=== PATIENT | female | born 1940 | race Hispanic/Latino ===

== ENCOUNTER 2017-04-24 12:26 | Inpatient (IN) | payer MEDICARE ==
--- NOTE | 2017-04-24 12:46 | ED PDOC ---
Arrival/HPI - General Chief Complaint: Psychiatric Evaluation Time Seen by Provider: 04/24/17 12:37 Historian: Family () - History of Present Illness Narrative History of Present Illness (Text): 04/24/17 12:50 pt presents with AMS, worsening agitation x 1 week as per spouse; pt has had difficulty sleeping as well and verbally disturbing spouse as well as neighbors ; pt with decr appetite x 1-2 days, not taking her medications x 1 day; per spouse, no fever/chills/sweats, no cp/abd pain, no sob, no n/v, no urinary/ bowel changes; last BM was yesterday, no gross bleeding noted; no fall/trauma/ travel/sick contact; pt is here for further eval; pt's without other complaints. spouse had spoke to PCP, recommended patient to be brought to ED for further eval/mgt/likely admission PCP: Cole Time/Duration: > week Symptom Onset: Gradual Symptom Course: Worsening Context: Home Past Medical History - Provider Review Nursing Documentation Reviewed: Yes - Travel History Have you recently traveled outside [place] w/in the past 3 mons?: No - Past History Past History: No Previous - Infectious Disease Hx of Infectious Diseases: None - Cardiac Hx Cardiac Disorders: Yes - Neurological Hx Alzheimer's Disease: Yes Family/Social History - Physician Review Nursing Documentation Reviewed: Yes Family/Social History: No Known Family HX Smoking Status: Never Smoked Hx Alcohol Use: No Hx Substance Use: No Hx Substance Use Treatment: No Allergies/Home Meds Allergies/Adverse Reactions: Allergies codeine Allergy (Mild, Verified 04/24/17 12:54) RASH Home Medications: Home Meds Medication Instructions Recorded Confirmed Unobtainable 04/24/17 04/24/17 Review of Systems - Review of Systems Constitutional: Normal Eyes: Normal ENT: Normal Respiratory: Normal Cardiovascular: Normal Gastrointestinal: Normal Genitourinary Female: Normal Musculoskeletal: Normal Skin: Normal Neurological: Other (altered behavior, agitation) Endocrine: Normal Hemo/Lymphatic: Normal Psychiatric: Normal Physical Exam - Physical Exam Physical Exam Limitations: Altered Mental Status, Uncooperative Vital Signs Reviewed: Yes Vital Signs Temp Pulse Resp BP Pulse Ox 04/24/17 15:52 57 L 17 108/49 L 97 04/24/17 12:48 97.7 F 99 H 17 157/87 H 100 Temperature: Afebrile Blood Pressure: Hypertensive Pulse: Regular Respiratory Rate: Normal Appearance: Positive for: Well-Appearing, Other (alert/awake, uncooperative, NAD , appearing agitated, GCS = 15) Pain Distress: Moderate Mental Status: Positive for: Confused, Agitated, other (alert, not cooperative, oriented x 1 (not to date/time/place)) - Systems Exam Head: Present: Atraumatic, Normocephalic Pupils: Present: PERRL, Other (no nystagmus, no photophobia, sclera anicteric) Extroacular Muscles: Present: EOMI Conjunctiva: Present: Normal Ears: Present: Normal Mouth: Present: Moist Mucous Membranes, Other (fair dentitions/partial dentures , no drooling/stridor, no dysphonia, uvula/tongue are midline) Pharnyx: Present: Normal Nose (External): Present: Atraumatic Nose (Internal): Present: Normal Inspection Neck: Present: Normal Range of Motion, Trachea Midline, Other (no midline tenderness, no nuchal rigidity, no step off). No: MIDLINE TENDERNESS Respiratory/Chest: Present: Clear to Auscultation, Good Air Exchange, Other ( CTA b/l, no w/r/r, no tachypenia, no accessory muscle use noted) Cardiovascular: Present: Regular Rate and Rhythm, Normal S1, S2. No: Murmurs Abdomen: Present: Normal Bowel Sounds, Other (well nourished female, no focal tenderness, no guarding/rigidity, no masses, no stephen's sign, no mcburney's point tenderness) Back: Present: Normal Inspection, Other (intact ROM, no midline tenderness). No : CVA Tenderness, Midline Tenderness Upper Extremity: Present: Normal Inspection, Normal ROM, NORMAL PULSES, Neurovascularly Intact, Capillary Refill < 2s. No: Edema Lower Extremity: Present: Normal Inspection, NORMAL PULSES, Normal ROM, Neurovascularly Intact, Capillary Refill < 2 s, Other (+ ambulatory) Neurological: Present: GCS=15, CN II-XII Intact, Other (no slurr speech, no facial asymmetries, noted) Skin: Present: Warm, Normal Color, Other (cap refill < 1sec, no ulcerations, no petechiae, no rashes) Psychiatric: Present: Alert, Other (behavior disorder noted) Medical Decision Making ED Course and Treatment: 04/24/17 12:50 Impression: AMS, agitation i have consider all the differential diagnosis regarding pt's chief medical complaints/clinical findings, including but are not limited to: AMS, agitation A/P: agitation, AMS - labs - iv - ct - xray - ekg - observe - supportive care 04/24/17 14:39 pt is currently sedated, calmed, cooperative is made aware of pt's medical results agrees with admission I spoke to Dr Galvan, pt's PCP, made aware, agrees with admission, would like to consult Psych 04/24/2017 14:22 Chest X-ray IMPRESSION: No active disease. Dictator: Javi Cramer MD 04/24/2017 14:39 Abdominal X-Ray IMPRESSION: No active disease. Dictator: Javi Cramer MD 04/24/2017 15:[address] IMPRESSION: No acute findings. Dictator: Javi Cramer MD 04/24/17 1530 pt is currently stable pt is calm and sedated spouse is made aware of pt's medical results agrees with admission Re-evaluation Time: 13:30 Reassessment Condition: Improving,but remains with symptoms - Lab Interpretations I have reviewed the lab results: Yes Interpretation: Abnormal lab values (+ UTI) - RAD Interpretation Narrative RAD Interpretations (Text): 04/24/17 15:00 HISTORY: AMS, r/o obstruction/constipation COMPARISON: No prior. FINDINGS: BOWEL: Normal. No obstruction. No free air. BONES: Normal. OTHER FINDINGS: None. IMPRESSION: No active disease. 04/24/17 15:00 HISTORY: AMS COMPARISON: No prior. FINDINGS: LUNGS: No active pulmonary disease. PLEURA: No significant pleural effusion identified, no pneumothorax apparent. CARDIOVASCULAR: Normal. OSSEOUS STRUCTURES: No significant abnormalities. VISUALIZED UPPER ABDOMEN: Normal. OTHER FINDINGS: None. IMPRESSION: No active disease. 04/24/17 16:30 PROCEDURE: CT HEAD WITHOUT CONTRAST. HISTORY: AMS COMPARISON: None available. TECHNIQUE: Axial computed tomography images were obtained through the head/brain without intravenous contrast. Radiation dose: Total exam DLP = 768 mGy-cm. This CT exam was performed using one or more of the following dose reduction techniques: Automated exposure control, adjustment of the mA and/or kV according to patient size, and/or use of iterative reconstruction technique. FINDINGS: HEMORRHAGE: No intracranial hemorrhage. BRAIN: No mass effect or edema. No atrophy or chronic microvascular ischemic changes. VENTRICLES: Unremarkable. No hydrocephalus. CALVARIUM: Unremarkable. PARANASAL SINUSES: Unremarkable as visualized. No significant inflammatory changes. MASTOID AIR CELLS: Unremarkable as visualized. No inflammatory changes. OTHER FINDINGS: None. IMPRESSION: No acute findings Radiology Orders: 04/24/17 12:54 HEAD W/O CONTRAST [CT] Stat 04/24/17 12:55 CHEST PORTABLE [RAD] Stat 04/24/17 12:56 ABDOMEN PORTABLE 1 VIEW [RAD] Stat Trades Helper: Radiologist - EKG Interpretation EKG Interpretation (Text): 04/24/17 13:31 NSR at 70 bpm, LAD, no ectopy, diffuse low voltage inf/corey-lateral leads, inverted T in leads III, V1, no st changes, ABNL EKG; no old ekg to compare with Interpreted by ED Physician: Yes Type: 12 lead EKG Comparison: No previous EKG avail. - Medication Orders Current Medication Orders: Discontinued Medications Lorazepam (Ativan) 2 mg IVP STAT STA Stop: 04/24/17 12:55 Last Admin: 04/24/17 13:00 Dose: 2 mg IVP Administration Document 04/24/17 13:00 SF (Rec: 04/24/17 13:00 SF [id number]) Charges for Administration # of IVP Administrations 1 Ziprasidone (Geodon Inj) 10 mg IM STAT STA Stop: 04/24/17 12:55 Last Admin: 04/24/17 13:01 Dose: 10 mg IM Administration Charges Document 04/24/17 13:01 SF (Rec: 04/24/17 13:01 SF [id number]) Injection Site MAR Injection Site Right Deltoid Charges for Administration # of IM Administrations 1 Disposition/Present on Arrival - Present on Arrival Any Indicators Present on Arrival: No History of DVT/PE: No History of Uncontrolled Diabetes: No Urinary Catheter: No History of Decub. Ulcer: No History Surgical Site Infection Following: None - Disposition Have Diagnosis and Disposition been Completed?: Yes Diagnosis: Altered mental status, unspecified, Behavior disorder, UTI (urinary tract infection), Urinary (tract) obstruction Disposition: HOSPITALIZED Disposition Time: 14:38 Patient Plan: Admission Patient Problems: Current Active Problems Problem Status Onset Altered mental status, unspecified Acute Behavior disorder Acute UTI (urinary tract infection) Acute Urinary (tract) obstruction Acute Condition: STABLE
[2017-04-24 12:52] VITALS: BMI 29.4
[2017-04-24 13:47] LABS: BASO # 0.01 K/mm3 (0.0-2.0); BASO % 0.2 % (0.0-3.0); EOS # 0.1 (0.0-0.7); GRAN # 3.47 (1.4-6.5); GRAN % 67.7 % (50.0-68.0); HEMOGLOBIN 11.3 g/dL (12.0-16.0); LYMPH # 1.2 (1.2-3.4); LYMPH % 24.2 % (22.0-35.0); MEAN CORPUSCULAR HEMOGLOBIN 30.6 pg (25.0-35.0); MEAN CORPUSCULAR HGB CONC 32.9 g/dl (31.0-37.0); MEAN PLATELET VOLUME 9.7 fl (7.0-11.0); MONO # 0.3 (0.1-0.6); MONO % 5.9 % (1.0-6.0); RBC 3.69 10^6/uL (3.5-6.1); RED CELL DISTRIBUTION WIDTH 13.3 % (11.5-14.5); WHITE BLOOD COUNT 5.1 10^3/ul (4.5-11.0)
[2017-04-24 13:59] LABS: ACETAMINOPHEN < 10.0 ug/ml (10.0-20.0); SALICYLATE < 1 mg/dL (2.0-20.0)
[2017-04-24 14:00] LABS: ALB/GLOB RATIO 1.5 (1.1-1.8); CALCIUM 9.3 mg/dL (8.4-10.5)
[2017-04-24 14:09] LABS: TROPONIN I 0.01 ng/mL
--- NOTE | 2017-04-24 14:24 | RAD ---
HISTORY: AMS COMPARISON: No prior. FINDINGS: LUNGS: No active pulmonary disease. PLEURA: No significant pleural effusion identified, no pneumothorax apparent. CARDIOVASCULAR: Normal. OSSEOUS STRUCTURES: No significant abnormalities. VISUALIZED UPPER ABDOMEN: Normal. OTHER FINDINGS: None. IMPRESSION: No active disease.
--- NOTE | 2017-04-24 14:41 | RAD ---
HISTORY: AMS, r/o obstruction/constipation COMPARISON: No prior. FINDINGS: BOWEL: Normal. No obstruction. No free air. BONES: Normal. OTHER FINDINGS: None. IMPRESSION: No active disease.
--- NOTE | 2017-04-24 15:09 | CT ---
PROCEDURE: CT HEAD WITHOUT CONTRAST. HISTORY: AMS COMPARISON: None available. TECHNIQUE: Axial computed tomography images were obtained through the head/brain without intravenous contrast. Radiation dose: Total exam DLP = 768 mGy-cm. This CT exam was performed using one or more of the following dose reduction techniques: Automated exposure control, adjustment of the mA and/or kV according to patient size, and/or use of iterative reconstruction technique. FINDINGS: HEMORRHAGE: No intracranial hemorrhage. BRAIN: No mass effect or edema. No atrophy or chronic microvascular ischemic changes. VENTRICLES: Unremarkable. No hydrocephalus. CALVARIUM: Unremarkable. PARANASAL SINUSES: Unremarkable as visualized. No significant inflammatory changes. MASTOID AIR CELLS: Unremarkable as visualized. No inflammatory changes. OTHER FINDINGS: None. IMPRESSION: No acute findings
[2017-04-24 15:10] LABS: PH,URINE 6.5 (4.7-8.0); URINE BILIRUBIN NEGATIVE (NEGATIVE); URINE BLOOD NEGATIVE (NEGATIVE); URINE GLUCOSE (UA) NEGATIVE (NEGATIVE); URINE LEUKOCYTE ESTERASE TRACE Leu/uL (NEGATIVE); URINE PROTEIN NEGATIVE mg/dL (<30 mg/dL); URINE UROBILINOGEN 0.2 E.U./dL (<1 E.U./dL)
[2017-04-24 15:15] LABS: URINE APPEARANCE SL CLOUDY (CLEAR); URINE COLOR LIGHT YELLOW (YELLOW)
[2017-04-24 15:29] LABS: URINE BACTERIA MANY (NEG); URINE EPITHELIAL CELLS 0 - 2 /hpf (0-5); URINE RBC 0 - 2 /hpf (0-2)
[2017-04-24 15:38] LABS: BARBITURATES, UR NEGATIVE (NEGATIVE); BENZODIAZEPINES, UR NEGATIVE (NEGATIVE); OPIATES, UR NEGATIVE (NEGATIVE); PHENCYCLIDINE, UR NEGATIVE (NEGATIVE)
[2017-04-24] MEDS ORDERED: cefTRIAXone 1 gm 1 GM/100 ML BAG IVPB STA (16:26)
--- NOTE | 2017-04-25 02:51 | CP.PCM.PN ---
Subjective - Date & Time of Evaluation Date of Evaluation: 04/25/17 Time of Evaluation: 02:50 - Subjective Subjective: Patient was seen at bedside . She complained of nausea. Nurse Adam helped to communicate to patient. Has no chest pain. 130/83, pulse ox 95 % on RA, This 77 year old woman was admitted with altered mental status, UTI. Has PMH of Alzheimer's disease,HTN?. Medical reocord was reviewed. Objective - Vital Signs/Intake and Output Vital Signs (last 24 hours): Temp Pulse Resp BP Pulse Ox 98.7 F 58 L 18 115/75 98 04/24/17 18:15 04/24/17 18:15 04/24/17 18:15 04/24/17 18:15 04/24/17 17:31 - Medications Medications: Current Medications Atorvastatin Calcium (Lipitor) 10 mg PO DAILY KAROL Ceftriaxone Sodium (Rocephin 1 Gram Ivpb) 1 gm in 100 mls @ 100 mls/hr IVPB DAILY KAROL PRN Reason: Protocol Lisinopril (Zestril) 5 mg PO BID KAROL Last Admin: 04/24/17 18:40 Dose: 5 mg Non-Formulary Medication (Rivastigmine [Exelon 13.3 Mg/24 Hr Patch]) 1 patch TD DAILY KAROL Pantoprazole Sodium (Protonix Ec Tab) 40 mg PO DAILY KAROL Ziprasidone (Geodon Inj) 20 mg IM ACB KAROL PRN Reason: Protocol - Labs Labs: 04/24/17 13:35 04/24/17 13:35 Most Recent Lab Values WBC 5.1 10^3/ul (4.5-11.0) 04/24/17 13:35 RBC 3.69 10^6/uL (3.5-6.1) 04/24/17 13:35 Hgb 11.3 g/dL (12.0-16.0) L 04/24/17 13:35 Hct 34.3 % (36.0-48.0) L 04/24/17 13:35 MCV 93.0 fl (80.0-105.0) 04/24/17 13:35 MCH 30.6 pg (25.0-35.0) 04/24/17 13:35 MCHC 32.9 g/dl (31.0-37.0) 04/24/17 13:35 RDW 13.3 % (11.5-14.5) 04/24/17 13:35 Plt Count 238 10^3/uL (120.0-450.0) 04/24/17 13:35 MPV 9.7 fl (7.0-11.0) 04/24/17 13:35 Gran % 67.7 % (50.0-68.0) 04/24/17 13:35 Lymph % (Auto) 24.2 % (22.0-35.0) 04/24/17 13:35 [place] % (Auto) 5.9 % (1.0-6.0) 04/24/17 13:35 Eos % (Auto) 2.0 % (1.5-5.0) 04/24/17 13:35 Baso % (Auto) 0.2 % (0.0-3.0) 04/24/17 13:35 Gran # 3.47 (1.4-6.5) 04/24/17 13:35 Lymph # (Auto) 1.2 (1.2-3.4) 04/24/17 13:35 [place] # (Auto) 0.3 (0.1-0.6) 04/24/17 13:35 Eos # (Auto) 0.1 (0.0-0.7) 04/24/17 13:35 Baso # (Auto) 0.01 K/mm3 (0.0-2.0) 04/24/17 13:35 Sodium 141 mmol/L (132-148) 04/24/17 13:35 Potassium 3.5 mmol/L (3.6-5.0) L 04/24/17 13:35 Chloride 102 mmol/L (98-107) 04/24/17 13:35 Carbon Dioxide 27 mmol/L (21-33) 04/24/17 13:35 Anion Gap 15 (10-20) 04/24/17 13:35 BUN 23 mg/dL (7-21) H 04/24/17 13:35 Creatinine 1.1 mg/dl (0.7-1.2) 04/24/17 13:35 Est GFR ( Amer) 58 04/24/17 13:35 Est GFR (Non-Af Amer) 48 04/24/17 13:35 POC Glucose (mg/dL) 103 mg/dL (65-110) 04/25/17 02:42 Random Glucose 91 mg/dL (70-110) 04/24/17 13:35 Calcium 9.3 mg/dL (8.4-10.5) 04/24/17 13:35 Total Bilirubin 0.7 mg/dL (0.2-1.3) 04/24/17 13:35 AST 29 U/L (14-36) 04/24/17 13:35 ALT 34 U/L (7-56) 04/24/17 13:35 Alkaline Phosphatase 71 U/L (38-126) 04/24/17 13:35 Troponin I 0.01 ng/mL 04/24/17 13:35 Total Protein 6.6 g/dL (5.8-8.3) 04/24/17 13:35 Albumin 4.0 g/dL (3.0-4.8) 04/24/17 13:35 Globulin 2.6 gm/dL 04/24/17 13:35 Albumin/Globulin Ratio 1.5 (1.1-1.8) 04/24/17 13:35 TSH 3rd Generation 2.57 mIU/mL (0.46-4.68) 04/24/17 13:35 Urine Color Light yellow (YELLOW) 04/24/17 14:00 Urine Appearance Sl cloudy (CLEAR) 04/24/17 14:00 Urine pH 6.5 (4.7-8.0) 04/24/17 14:00 Ur Specific [place] 1.010 (1.005-1.035) 04/24/17 14:00 Urine Protein Negative mg/dL (<30 mg/dL) 04/24/17 14:00 Urine Glucose (UA) Negative mg/dL (NEGATIVE) 04/24/17 14:00 Urine Ketones Negative mg/dL (NEGATIVE) 04/24/17 14:00 Urine Blood Negative (NEGATIVE) 04/24/17 14:00 Urine Nitrate Positive (NEGATIVE) H 04/24/17 14:00 Urine Bilirubin Negative (NEGATIVE) 04/24/17 14:00 Urine Urobilinogen 0.2 E.U./dL (<1 E.U./dL) 04/24/17 14:00 Ur Leukocyte Esterase Trace Sang/uL (NEGATIVE) H 04/24/17 14:00 Urine RBC 0 - 2 /hpf (0-2) 04/24/17 14:00 Urine WBC 2 - 5 /hpf (0-6) 04/24/17 14:00 Ur Epithelial Cells 0 - 2 /hpf (0-5) 04/24/17 14:00 Urine Bacteria Many (NEG) 04/24/17 14:00 Salicylates < 1 mg/dL (2.0-20.0) L 04/24/17 13:35 Urine Opiates Screen Negative (NEGATIVE) 04/24/17 14:00 Urine Methadone Screen Negative (NEGATIVE) 04/24/17 14:00 Acetaminophen < 10.0 ug/ml (10.0-20.0) L 04/24/17 13:35 Ur Barbiturates Screen Negative (NEGATIVE) 04/24/17 14:00 Ur Phencyclidine Scrn Negative (NEGATIVE) 04/24/17 14:00 Ur Amphetamines Screen Negative (NEGATIVE) 04/24/17 14:00 U Benzodiazepines Scrn Negative (NEGATIVE) 04/24/17 14:00 U Oth Cocaine Metabols Negative (NEGATIVE) 04/24/17 14:00 U Cannabinoids Screen Negative (NEGATIVE) 04/24/17 14:00 Alcohol, Quantitative < 10 mg/dL (0-10) 04/24/17 13:35 - Constitutional Appears: Well, No Acute Distress - Head Exam Head Exam: ATRAUMATIC, NORMAL INSPECTION, NORMOCEPHALIC - Eye Exam Eye Exam: Normal appearance - ENT Exam ENT Exam: Normal External Ear Exam - Neck Exam Neck Exam: Normal Inspection - Respiratory Exam Respiratory Exam: NORMAL BREATHING PATTERN - Cardiovascular Exam Cardiovascular Exam: absent: JVD - GI/Abdominal Exam GI & Abdominal Exam: absent: Distended, Tenderness, Mass, Rebound - Rectal Exam Rectal Exam: Deferred - Exam Additional comments: Deferred. - Extremities Exam Extremities Exam: Normal Inspection - Back Exam Back Exam: NORMAL INSPECTION - Neurological Exam Neurological Exam: Altered - Psychiatric Exam Psychiatric exam: Anxious - Skin Skin Exam: Normal Color Assessment and Plan - Assessment and Plan (Free Text) Assessment: Nasue[place]. UTI. Altered mental status. Hypokalemia. Borderline anemia. Dehydration. Plan: Zofran 4 mg IV stat.
[2017-04-25] MEDS ORDERED: Potassium Chloride 20 mEq ER Tab PO STA (03:20)
[2017-04-25 04:14] LABS: TROPONIN I < 0.01 ng/mL
--- NOTE | 2017-04-25 09:14 | CARD ---
APPROVED REPORT EKG Measurement Heart [id number] <Conclusion> Normal sinus rhythm Left axis deviation Abnormal ECG
[2017-04-25 09:25] LABS: ALB/GLOB RATIO 1.4 (1.1-1.8); ALBUMIN 3.7 g/dL (3.0-4.8); CALCIUM 9.6 mg/dL (8.4-10.5)
[2017-04-25] MEDS: Pantoprazole 40 mg EC Tab PO SCH (09:27)
[2017-04-25] MEDS: cefTRIAXone 1 gm 1 GM/100 ML BAG IVPB SCH (09:27)
--- NOTE | 2017-04-25 09:59 | CARD ---
APPROVED REPORT EKG Measurement Heart [id number] MA [id number] <Conclusion> Marked sinus bradycardia Abnormal ECG
[2017-04-25] MEDS ORDERED: RIVASTIGMINE TD SCH (10:00)
--- NOTE | 2017-04-25 20:04 | HP ---
HISTORY OF PRESENT ILLNESS: A 77-year-old white female with a recent history of change in mental status, history of disorientation, aggressive and combative behavior, wandering, loss of control of bowel and bladder. Patient has a history of hypertension in the past. Patient was brought by her to the ER, was found to have a urinary tract infection and change in mental status, confusion and disorientation. The patient was treated with Ativan and Geodon, started on IV antibiotics. Patient is much improved today. PHYSICAL EXAMINATION: VITAL SIGNS: Stable. CHEST: Clear to auscultation and percussion. HEART: Regular sinus bradycardia. LABORATORY DATA: White count is normal. ASSESSMENT: Patient is afebrile. She does have pyuria and bacteriuria. PLAN: To start some rehab. Continue IV antibiotics and . Valerio Galvan MD
--- NOTE | 2017-04-25 20:36 | HP ---
HISTORY OF PRESENT ILLNESS: A 77-year-old Lao female with a recent history of dementia, history of hypertension, recently became incontinent of bowel and bladder with change in mental status, confusion, disorientation, had worsening change in mental status and confusion. Became combative and aggressive. Was brought to the ER by the and was found to have pyuria, bacteriuria and urinary tract infection. PHYSICAL EXAMINATION GENERAL: Shows a well-developed, well-nourished white female, more calm and collected this morning. HEENT: Essentially within normal limits. HEART: Regular sinus rhythm. Systolic ejection murmur in the left sternal border. CHEST: Clear to auscultation and percussion. ABDOMEN: No CVA tenderness. EXTREMITIES: Without cyanosis, clubbing or edema. NEUROLOGIC: The patient is confused, disoriented. Not oriented to person, place or time. IMPRESSION: Urinary tract infection, worsening dementia, history of hypertension and urinary incontinence in a 77-year-old Lao female. Valerio Galvan MD
[2017-04-26 08:52] LABS: CALCIUM 9.7 mg/dL (8.4-10.5)
[2017-04-26] MEDS: Pantoprazole 40 mg EC Tab PO SCH (11:16)
[2017-04-26] MEDS: cefTRIAXone 1 gm 1 GM/100 ML BAG IVPB SCH (11:16)
[2017-04-26] MEDS: RIVASTIGMINE TD SCH (11:25)
--- NOTE | 2017-04-26 13:42 | PN ---
DATE: A 77-year-old white female seen in hospital with change in mental status, confusion, disorientation, agitation, urinary tract infection, and dementia. Patient continues to have difficulty with agitation and confusion. She is afebrile at this point. She is on IV antibiotics. Laboratory data were unremarkable. Patient was seen by Psychiatry. We are awaiting continued tailoring of the psych meds to control her confusion and further workup. Valerio Galvan MD
[2017-04-27] MEDS: cefTRIAXone 1 gm 1 GM/100 ML BAG IVPB SCH (10:40)
[2017-04-27] MEDS: Pantoprazole 40 mg EC Tab PO SCH (10:40)
[2017-04-27] MEDS: RIVASTIGMINE TD SCH (10:41)
--- NOTE | 2017-04-28 08:36 | CON ---
DATE: 04/25/2017 PRESENTATION: The patient is a 73-year-old female, seen at bedside. She was admitted to the hospital on 04/24/2017. She presented with altered mental status and worsening agitation for the last week, according to her . She was not sleeping properly, disturbing spouse and neighbors, has not been eating or taking her medication, and the PMD recommended the patient be brought to the ER for further evaluation. Consultation today was ordered for AMS and behavior disorder. I saw and attempted to interview patient at bedside. She primarily speaks Albanian, and even with an diaper machine tender, is confused. She answers to her name but she is disoriented in every other sphere. She does not make sense when she talks. She has had some problems with confusion and on trying to get out of her chair, out of her bed, was unable to give me any information about her history. I called her , Jossue Harrison at [phone], and I left the message. I was unable to reach him and did not receive a call back. So I really have no past information regarding this patient at this time. However, I did order Seroquel 12.5 mg one at bedtime to see if it would be helpful with sundowning. In speaking with the nursing staff, she was given some Geodon IM and that actually helped her organized a little bit better with good result. VITAL SIGNS: Her current vital signs include temperature of 97.2, pulse rate of 65, blood pressure of 114/59, respiratory rate of 18 and O2 sat of 95%. MENTAL STATUS: Unable to be performed, however, there is nothing in this patient's behavior that would appear that she is suicidal or homicidal. She does get disoriented, at times she is confused and unable to manage her behavior and she does have the Seroquel for tonight. DIAGNOSTIC IMPRESSION: Dementia unspecified with behavioral disturbance. PLAN: There is nothing in patient's behavior to indicate that she is suicidal or homicidal. She is in a bed that is close to the nurses' station, that is easily visualized by the nurses, so she is being observed. She does have periods of disorientation. Seroquel 12.5 mg has been added at bedtime to help with her confusion. She does have Geodon injection p.r.n. as well. The patient will be followed tomorrow by Dr. Osorio to assess how patient is doing with the Seroquel. Thank you for the consult. Emmy Jalloh APN Joanne De León MD [facility]
--- NOTE | 2017-04-28 08:56 | CON ---
DATE: 04/26/2017 HISTORY OF PRESENT ILLNESS: Patient is a 77-year-old [place] female with a history of dementia who Psychiatry is following for increased confusion, disorientation as well as behavioral changes. Patient was seen by CASSANDRA , so this provider could not review it. I reviewed recent notes and attempted to review the patient at bedside. I also spoke with staff who indicated that patient did sleep better last night after Seroquel was provided and in this regard that . Agitation was not noted overnight and agitation was not reported by her one-to-one sitter as well. Prior to that, she had demonstrated restlessness, confusion, trying to climb out of bed and had been difficult to redirect . Patient's responses were illogical, repetitive and a productive interview could not be accomplished. She did not appear to be in any discomfort and was generally pleasant when I spoke with her, but was definitely disoriented and confused. calmer than prior notes have reported and could be redirected and followup is requested. Her insight and judgment are considered to be poor nonetheless. Vital signs were reviewed by this provider as well as recent labs. RELEVANT PSYCHIATRIC MEDICATIONS: Include Ativan 1 mg IV q.8 h. p.r.n., which the patient received one dose early this morning; Seroquel 12.5 mg at bedtime, patient received one dose last night as noted; Risperdal 0.5 mg p.o. q.6 h. p.r.n., she did not receive any dosage of this medication yet and , which patient received one dose at 08:42 a.m. yesterday with no further doses. IMPRESSION: Dementia with behavioral disturbance, rule out contribution of delirium worsening her impulse control and orientation. RECOMMENDATIONS: We will continue with current medications. There is no acute indication to change them. The patient's behavior appears to be improving at this time. Psychiatry will continue to follow up with patient every other day, monitor her mental status and behavior. We will be happy to follow up on an earlier basis if there are any acute changes in her mental status. Zdena Osorio, MD [facility] # [id number]
[2017-04-28] MEDS: Pantoprazole 40 mg EC Tab PO SCH (10:02)
[2017-04-28] MEDS: Cefpodoxime (Vantin) 200 mg Tab PO SCH (10:02)
[2017-04-28] MEDS: RIVASTIGMINE TD SCH (10:03)
--- NOTE | 2017-04-28 12:42 | PN ---
DATE: 04/27/2017 SUBJECTIVE: A 77-year-old Maltese female who was admitted with change in mental status, urinary tract infection, dementia, agitation. Patient was seen on 04/27/2017, slept well, had less confusion, disorientation, less aggressive behavior, less combativeness. Patient is afebrile today. Medication was switched from IM to p.o. She continues to run a slightly elevated blood pressure of 143/100. She is afebrile today. PHYSICAL EXAMINATION VITAL SIGNS: Stable. PLAN: To finish her course of antibiotics and transfer to subacute. Valerio Galvan MD
--- NOTE | 2017-04-28 15:11 | PN ---
DATE: 04/28/2017 SUBJECTIVE: A 77-year-old white female seen on 04/28/2017, more calm, resting, less agitated, less combative, responding to IV antibiotics for urinary tract infection, dementia with aggressive behavior responding to Geodon, had long discussion with Psych, evaluated today, possible transfer to Psych, if it was okay with Dr. Joanne De León and continue physical therapy and occupational therapy and looking for after her Psych stay. PHYSICAL EXAMINATION: Unchanged: VITAL SIGNS: Stable. CHEST: Clear to auscultation and percussion. HEART: Reveals sinus rhythm. No complaints. LABORATORY DATA: Unremarkable. ASSESSMENT: Patient is afebrile. Valerio Galvan MD
--- NOTE | 2017-04-28 19:04 | PN ---
DATE: 04/28/2017 She is being seen today for a followup consultation. PRESENTATION: The patient is a 77-year-old female, small in stature, seen at bedside, in attendance. The patient was originally admitted to the hospital on 04/24/2017. She has been living at home with her spouse and has had worsening agitation and altered mental status, lot of difficulty sleeping, verbal disturbances, and was combativeness towards the . Consultation was ordered due to concerns regarding AMS and behavior disorder. The patient's is seen with the patient. The patient physically appears much better than she did last week. Her head is up. She is socializing. She chatters away; however, she is very very confused, answers to her name, but disoriented in every other sphere, has no concept at this time where she is, but does appear to be pleasantly confused at this time. Evidentially, there was an incident with her getting upset and needing a p.r.n. yesterday when her tried to leave. Dr. Galvan visited while I was with the patient, indicated that the patient can go to subacute rehab in [place] which the patient's is in agreement with. The patient's is her legal guardian. He does have paperwork for this and agrees to bring that to the hospital tomorrow. Medications reviewed with Dr. De León and unchanged. Her is also working with rn social services to plan her care as he feels he cannot manage her anymore at home. She has been violent with him, very confused. She also has incontinence and gets angry with him when he is trying to put diaper on her and keep her clean. VITAL SIGNS: Current vital signs include temperature of 98.2, pulse rate of 67, blood pressure of 143/100, respiratory rate of 18, and O2 sat of 99%. The patient's urine culture from 04/24, indicates that she had a Klebsiella oxytoca urinary tract infection, which may also have contributed to her presentation last week. MEDICATIONS: The patient's current medications include in terms of her psychiatric issues, Ativan 1 mg IV push every 8 hours as needed, Remeron was added for 7.5 mg one at bedtime, Geodon 20 mg one p.o. b.i.d. The Risperdal p.r.n. and Seroquel at bedtime have been discontinued. MENTAL STATUS EXAM: As stated earlier, the patient is disoriented in all the sphere except knowing her name. She is unable to answer any questions. She seems to be pleasantly confused today, but really is not able to have any conversation. She is primarily Mongolian speaking, but even in Mongolian, she is confused. DIAGNOSTIC IMPRESSION: Dementia with behavioral disturbance. PLAN: The patient is unable to tell me whether or not she is suicidal or homicidal; however, there is nothing in her behavior to indicate that this is would be so. She does not appear in any imminent danger of hurting herself or others. However, the patient does not have capacity, her is her legal guardian and he will bring in the papers tomorrow, so that we will have these on the chart and he will be able to appropriately sign for whatever treatments she needs. There is a possibility that she will need to come to the psychiatric unit in between leaving the 5th floor and going to rehab. However, if the patient clear with these medication change, if the patient is able to clear on the floor, it would be better to just get her out to the rehab facility, so once she is medically cleared, we will be able to make a better decision in terms of that. Psychiatry will continue to follow. Thank you for the consult. Emmy Jalloh APN LIAM
[2017-04-29] MEDS: Pantoprazole 40 mg EC Tab PO SCH (09:49)
[2017-04-29] MEDS: Cefpodoxime (Vantin) 200 mg Tab PO SCH (09:49)
[2017-04-29] MEDS ORDERED: RIVASTIGMINE TD SCH (10:06)
[2017-04-29] MEDS: RIVASTIGMINE TD SCH (10:39)
--- NOTE | 2017-04-29 16:47 | PN ---
DATE: 04/29/2017 She is being seen today for a followup consultation. PRESENTATION: The patient is a 77-year-old female, seen at bedside, in attendance. The patient is pleasantly confused. She chatters away in Kazakh. She does not say anything that makes any sense at all. However, she has no behavioral problems according to the nursing staff. She slept well last night and she has been cooperative. CURRENT MEDICATIONS: Lipitor; Vantin; Zestril; lorazepam 1 mg IVP q. 8 hours, p.r.n. agitation, last time she got that was on April 26; mirtazapine 7.5 mg one at bedtime; Exelon patch which is from home; Zofran injection, which she last received on the ; and Geodon capsule 20 mg p.o. b.i.d with food, which she seems to be tolerating well and seems to be helping her with her behavior. VITAL SIGNS: Current vital signs included a temperature of 97, pulse rate of 64, blood pressure of 162/93, pulse rate of 20, and an O2 sat of 99% at room air. MENTAL STATUS EXAM: The patient is disoriented except to her name. There is nothing in her behavior that would make one to think she is suicidal or homicidal, but she is really not cognizant enough to be able to answer any questions. Her indicates there is no psychiatric history and she has never tried to hurt herself in anyway and up until now has never been on any psychiatric medication. DIAGNOSTIC IMPRESSION: Dementia with behavioral disturbance.Delirium due to urinary tract infection since resolved. PLAN: Patient does not appear to be suicidal or homicidal. At this time, she appears of no imminent danger of hurting herself or others. It appears that patient's recent difficulties were due to urinary tract infection which has since cleared. She is cooperative. According to social work notes patient is being referred to subacute rehab facilities in [place]. has guardianship of the patient, so he will be able to sign her into these places and to continue to supervise her care. The patient appears to be stable. Psychiatry will sign off on this patient. We would recommend that this patient be followed by a psychiatrist within 48 to 72 hours at the next facility as she is on psychiatric medication. This case was discussed with Dr. De León. Thank you for the consult. Emmy Jalloh APN MTDKellie
--- NOTE | 2017-04-29 21:02 | PN ---
DATE: SUBJECTIVE: A 77-year-old white female admitted with confusion, disorientation, combativeness, aggressive behavior, urinary tract infection, mild hypertension. The patient is doing better on Geodon. She is on IV antibiotics. Her blood pressure is still elevated at 170/64. She has been evaluated for possible transfer to [facility] to continue titration of her medication to control her aggressive behavior and complete a course of IV antibiotics. PHYSICAL EXAMINATION VITAL SIGNS: Stable. She is afebrile. Physical exam is unchanged. PLAN: Is as above. Valerio Galvan MD
[2017-04-30] MEDS: RIVASTIGMINE TD SCH (09:18)
[2017-04-30] MEDS: Cefpodoxime (Vantin) 200 mg Tab PO SCH (09:19)
[2017-04-30] MEDS: Pantoprazole 40 mg EC Tab PO SCH (09:20)
--- NOTE | 2017-04-30 13:03 | PN ---
DATE: SUBJECTIVE: A 77-year-old white female admitted to the hospital with urosepsis, change in mental status, aggressive behavior, dementia. Patient has done well on Geodon and IV antibiotics. She . We will be discharging the patient as soon as the bed is ready at [facility] for continued titrating of her psychiatric medications and finishing of her oral antibiotics. She is off IV antibiotics. She is on p.o. antibiotics. Vital signs are stable. She is more calm and collected. She does have dementia. Valerio Galavn MD
[2017-04-30 15:04] VITALS: RESP 20
[2017-05-01 07:47] VITALS: TEMP 98.4
--- NOTE | 2017-05-01 08:48 | CP.PCM.PCO ---
Physician Communication Note - Physician Communication Note Physician Communication Note: psychiatric team signed off
[2017-05-01] MEDS: Pantoprazole 40 mg EC Tab PO SCH (09:42)
[2017-05-01] MEDS: RIVASTIGMINE TD SCH (09:43)
[2017-05-01] MEDS: Cefpodoxime (Vantin) 200 mg Tab PO SCH (09:43)
--- NOTE | 2017-05-01 09:57 | PN ---
DATE: SUBJECTIVE: A 77-year-old white female admitted to the hospital with urinary tract infection, change in mental status, confusion and disorientation, dementia. The patient is doing better on Geodon. She is on p.o. antibiotics for urinary tract infection. She is afebrile. Vital signs are stable. She is planning for transfer and discharge to subacute to continue her rehabilitation and adjustment of her Geodon. PHYSICAL EXAMINATION: GENERAL: Physical examination is unchanged. The patient is more calm and less aggressive in her behavior. CHEST: Clear to auscultation. HEART: Regular sinus rhythm. ABDOMEN: Benign. EXTREMITIES: Without cyanosis, clubbing and edema. Valerio Galvan MD
[2017-05-01 17:01] VITALS: BP 138/57; PULSE 87; O2SAT 96
== END 2017-05-01 22:40 | disposition home health service (06) | DRG 690 ==
LOC: ED 12:26 → ERH 13:24 → 5RNO 16:50
PROVIDERS: ADMIT Internal Medicine; ATTEND Internal Medicine
DX: N39.0 Urinary tract infection, site not specified (principal); F05 Delirium due to known physiological condition; F02.81 Dementia in other diseases classified elsewhere, unspecified severity, with behavioral disturbance; G30.9 Alzheimer's disease, unspecified; E87.6 Hypokalemia; E86.0 Dehydration; I10 Essential (primary) hypertension; D64.9 Anemia, unspecified; B96.1 Klebsiella pneumoniae [K. pneumoniae] as the cause of diseases classified elsewhere; Z88.5 Allergy status to narcotic agent